=== PATIENT | female | born 1950 | race Caucasian/White ===

== ENCOUNTER 2021-03-09 07:29 | Day surgery (SDC) | payer BC ==
[2021-03-08 14:44] VITALS: BMI 20.9
[2021-03-09] MEDS ORDERED: PROPOFOL 20 ML ONE ×2 (08:06)
[2021-03-09] MEDS ORDERED: LIDOCAINE HCL/PF 2% SDV 5ML VIAL ONE (08:07)
[2021-03-09 08:45] VITALS: TEMP 97.8
[2021-03-09 09:15] VITALS: BP 121/74; PULSE 78
== END 2021-03-09 09:18 | disposition home or self-care (01) ==
LOC: FASU-ENDO 07:29
PROVIDERS: ATTEND Internal Medicine Gastroenterology
PROC: 0DB68ZX Excision of Stomach, Via Natural or Artificial Opening Endoscopic, Diagnostic (ICD-10-PCS; 2021-03-09)
PROC: 0DB58ZX Excision of Esophagus, Via Natural or Artificial Opening Endoscopic, Diagnostic (ICD-10-PCS; 2021-03-09)
PROC: 0DB98ZX Excision of Duodenum, Via Natural or Artificial Opening Endoscopic, Diagnostic (ICD-10-PCS; principal; 2021-03-09 08:23)
DX: K29.50 Unspecified chronic gastritis without bleeding (principal); R12 Heartburn
CPT/HCPCS: 88305-TC; 88342-TC